=== PATIENT | male | born 1940 | race Caucasian/White ===

== ENCOUNTER → 2017-05-11 | Outpatient (CLI) | payer MEDICARE ==
[~2017-05-11] MED LIST: ACETAMINOPHEN-1 EAC1; ACETAMINOPHEN-1 EAC1 PO; AMITRIPTYLINE H25 M2 PO; AMLODIPINE-BEN1 EAC3 PO; BENAZEPRIL HCL20 MG PO; EFFIENT10 MG PO; HYTRIN 5 M5 MG/1 CA1 PO; IBUPROFEN 800800 M1 PO; IMDUR 60 MG TAB60 M1 PO; LISINOPRIL10 MG PO; LOPRESSOR25 PO; LOW DOSE ASPIRI81 M1 PO; METHOCARBAMOL500 M1; NEXIUM40 MG PO; NITROGLYCERIN0.4 MG; NITROGLYCERIN0.4 MG SUBLING; NORCO 5-325 TA1 EACH PO; NORVASC 5 MG TAB5 MG PO; PERCOCET PO; PLAVIX 75 MG TA75 M1 PO; PRILOSEC 20 MG20 MG PO; ZANTAC 150MG T150 M1; ZANTAC 150MG T150 M1 PO; ZANTAC 7575 MG PO; ZOCOR 20 MG TAB20 M1 PO
== END ==
LOC: M.RAD 08:50
DX: M25.512 Pain in left shoulder (principal); I10 Essential (primary) hypertension; I25.10 Atherosclerotic heart disease of native coronary artery without angina pectoris

== ENCOUNTER → 2017-10-25 | Outpatient (CLI) | payer MEDICARE ==
--- NOTE | 2017-10-25 17:22 | CARDNUC ---
[place] [address] CARDIAC NUCLEAR IMAGING REPORT Name: EPI OLEARY Room: [facility]#: [id number] Admission: 10/25/17 Attend Phys: Erick Fair Discharge: Date of : 42 Date of Service: 10/25/17 1722 Report #: [id number] THIS REPORT FOR: //name// APPROVED REPORT Imaging Protocol: Rest Tc-99m/Stress Tc-99m 1 day Study performed: 10/25/2017 07:45:00 Indication: CAD Patient Location: Out-Patient Stress Tech: Keyanna Chapman Stress Nurse: Sharon Oneill RN NM Tech:ONESIMO Ayala Ht: 5 ft 9 in Wt: 209 lbs BSA: 2.10 m2 BMI: 30.86 Medical History Medical History: Carotid artery disease Medications: Metoprolol, Amlodipine, Plavix, ASA, Statin Allergies: Gabapentin Cardiac Risk Factors: HTN, Hyperlipidemia, Age, FHX of CAD Previous Cardiac Procedures: Myocardial infarction, PCI Exercise History: Physically active Meds Held (24 hrs): Metoprolol, Amlodipine,Plavix, ASA, Statin Resting Data Rest SPECT myocardial perfusion imaging was performed in supine position 30 minutes following the intravenous injection of 11.2 mCi of Tc-99m Sestamibi. Time of rest injection: 0800 Date: 10/25/2017 Time of rest imagin The images were gated to evaluate regional wall motion and calculate left ventricular ejection fraction. Administration Route: IV Administration Site: Right Hand Exercise Stress At peak stress, the patient was injected intravenously with 33.8mCi of Tc-99m Sestamibi. Time of stress injection: 0940 Time of stress imagin Administration Route: IV Administration Site: [place] [address] CARDIAC NUCLEAR IMAGING REPORT Name: EPI OLEARY [id number] Admission: 10/25/17 Attend Phys: Erick Fair Discharge: Date of : 42 Date of Service: 10/25/17 1722 Report #: [id number] Gated Stress SPECT was performed 30 minutes after stress injection. The images were gated to evaluate regional wall motion and calculate left ventricular ejection fraction. Prone imaging was performed. Stress Test Details Stress Test: Exercise stress testing was performed using a Ravi protocol. Reason for pharmacologic stress test: HX CAD. HR Max Heart Rate (APMHR): 144 bpm Resting HR: 74 bpm Target HR (85% APMHR): 122 bpm Max HR Achieved: 145 bpm % of APMHR: 100 Recovery HR: 103 bpm HR response to stress: Normal HR response to stress BP Resting BP: 162/85 mmHg Recovery BP: 146/87 mmHg BP response to stress: Normal blood pressure response to stress. ECG Resting ECG: Sinus Rhythm, normal EKG Stress ECG: Sinus Tachycardia ST Change: None Arrhythmia: None Recovery ECG: Sinus Rhythm, normal EKG Recovery ST Change: None Recovery Arrhythmia: None Clinical Reason for Termination: Completed protocol Stress Symptoms: Fatigue Exercise duration: 6 min sec Exercise capacity: 7.05 METs Overall Exercise Capacity for Age: Normal Scale: Active The patient tolerated standard Ravi protocol exercise without significant symptoms. Nurse Comments Pt tolerated test well. [place] [address] CARDIAC NUCLEAR IMAGING REPORT Name: EPI OLEARY Room: [facility]#: [id number] Admission: 10/25/17 Attend Phys: Erick Fair Discharge: Date of : 42 Date of Service: 10/25/17 1722 Report #: [id number] Stress ECG Conclusion The baseline 12-lead electrocardiogram shows sinus rhythm without significant ST or T wave abnormality. EKGs obtained during and post exercise stress show sinus rhythm and sinus tachycardia with no significant ST or T wave changes when compared to baseline. There were no significant stress-induced arrhythmias. Study Quality Study: Good Artifact: No artifact Study Data At rest, the left ventricular ejection fraction was 76%.. Post stress, the left ventricular ejection was 73%.. TID = 0.85. Perfusion Normal left ventricular perfusion. Wall Motion Normal left ventricular wall motion. Nuclear Conclusion ECG Findings: negative for ischemia Clinical Findings: negative for ischemia Nuclear Findings: negative for ischemia Exercise Capacity: normal Left Ventricular Function: normal Risk Study: low Myocardial perfusion images show no defect to suggest infarct or ischemia. Left ventricular systolic function appears normal on gated studies. This is a low risk study. <Conclusion> The baseline 12-lead electrocardiogram shows sinus rhythm without significant ST or T wave abnormality. EKGs obtained during and post exercise stress show sinus rhythm and sinus tachycardia with no significant ST or T wave changes when compared to baseline. There were no significant stress-induced arrhythmias. <ELECTRONICALLY SIGNED> By: Nabil Hernández MD, FACC 10/25/171721 21 21 Nabil Hernández MD, FACC /INF
== END ==
LOC: M.NUC 05-03 13:40
DX: I25.10 Atherosclerotic heart disease of native coronary artery without angina pectoris (principal); I10 Essential (primary) hypertension; Z95.5 Presence of coronary angioplasty implant and graft

== ENCOUNTER → 2018-11-15 | Outpatient (CLI) | payer MEDICARE ==
--- NOTE | 2018-11-15 12:35 | 2DMMODE ---
[place] [address] 2 D/M-MODE ECHOCARDIOGRAM Name: EPI OLEARY Room: [facility]#: [id number] Admission: 11/15/18 Attend Phys: Erick Fair Discharge: Date of : 42 Date of Service: 11/15/18 1235 Report #: [id number] THIS REPORT FOR: //name// APPROVED REPORT Study performed: 11/15/2018 08:47:47 EXAM: Comprehensive 2D, Doppler, and color-flow Echocardiogram Patient Location: Out-Patient BSA: 2.06 HR: 55 bpm BP: 142/70 mmHg Other Information Study Quality: Good Indications CAD Hypertension/HDD 2D Dimensions IVSd: 10.40 (7-11mm) LVOT Diam: 20.43 (18-24mm) LVDd: 48.71 mm PWd: 10.40 (7-11mm) Ascending Ao: 30.91 (22-36mm) LVDs: 35.70 (25-40mm) Aortic Root: 27.43 mm Volumes Left Atrial Volume (Systole) LA ESV Index: 17.00 mL/m2 Aortic Valve AoV Peak Magdiel.: 0.82 m/s AO Peak Gr.: 2.68 mmHg LVOT Max P.25 mmHg AO Mean Gr.: 1.55 mmHg LVOT Mean P.47 mmHg LVOT Max V: 0.90 m/s AO V2 VTI: 19.80 cm LVOT Mean V: 0.55 m/s TAY (VTI): 3.28 cm2 LVOT V1 VTI: 19.82 cm Mitral Valve E/A Ratio: 0.65 MV Decel. Time: 362.59 ms MV E Max Magdiel.: 0.50 m/s MV PHT: 105.15 [place] [address] 2 D/M-MODE ECHOCARDIOGRAM Name: EPI OLEARY Room: [facility]#: [id number] Admission: 11/15/18 Attend Phys: Erick Fair Discharge: Date of : 42 Date of Service: 11/15/18 1235 Report #: [id number] MVA (PHT): 2.09 cm2 TDI E/Lateral E': 5.56 E/Medial E': 6.25 Medial E' Magdiel.: 0.08 m/s Lateral E' Magdiel.: 0.09 m/s Pulmonary Valve PV Peak Magdiel.: 0.90 m/s PV Peak Gr.: 3.21 mmHg Left Ventricle The left ventricle is normal size. There is normal LV segmental wall motion. There is normal left ventricular wall thickness. Left ventricular systolic function is normal. The left ventricular ejection fraction is within the normal range. LVEF is 55-60%. Grade I - abnormal relaxation pattern. Right Ventricle The right ventricle is normal size. The right ventricular systolic function is normal. Atria The left atrium size is normal. The right atrium size is normal. Aortic Valve The Aortic valve is sclerotic. No aortic regurgitation is present. There is no aortic valvular stenosis. Mitral Valve The mitral valve is normal in structure. Mild mitral regurgitation. No evidence of mitral valve stenosis. Tricuspid Valve The tricuspid valve is normal in structure. There is no tricuspid valve regurgitation noted. Pulmonic Valve Pulmonic valve is not well visualized. There is no pulmonic valvular regurgitation. Great Vessels The aortic root is normal in size. IVC is normal in size and collapses >50% with inspiration[place] [address] 2 D/M-MODE ECHOCARDIOGRAM Name: EPI OLEARY Room: [facility]#: [id number] Admission: 11/15/18 Attend Phys: Erick Fair Discharge: Date of : 42 Date of Service: 11/15/18 1235 Report #: [id number] There is no pericardial effusion. <Conclusion> LVEF is 55-60%. The Aortic valve is sclerotic. <ELECTRONICALLY SIGNED> By: Anselmo Brown MD, FAC 11/15/18 1235 1235 1235 Anselmo Brown MD, [facility] /INF
== END ==
LOC: M.CRD 08:45
DX: I08.0 Rheumatic disorders of both mitral and aortic valves (principal); I25.10 Atherosclerotic heart disease of native coronary artery without angina pectoris; I10 Essential (primary) hypertension

== ENCOUNTER → 2019-05-23 | Outpatient (CLI) | payer MEDICARE ==
--- NOTE | 2019-05-24 16:25 | CARDNUC ---
[place] [address] CARDIAC NUCLEAR IMAGING REPORT Name: EPI OLEARY Room: [facility]#: [id number] Admission: 05/23/19 Attend Phys: Erick Fair Discharge: Date of : 42 Date of Service: 05/24/19 1624 Report #: [id number] THIS REPORT FOR: cc: Dale Lopez MD, Dean L. MD Liston, Michael J. MD [facility] ~ APPROVED REPORT Study performed: 05/23/2019 09:24:26 Indication: , CAD s/p PCI Patient Location: Out-Patient Stress Tech: Hilda Ross Stress Nurse: Moira Sosa RN Ht: 5 ft 10 in Wt: 189 lbs BSA: 2.04 m2 BMI: 27.11 Medical History Medical History: CAD s/p stent Medications: amlodipine, asa-81, plavix, metoprolol, ntg, simvastatin Allergies: gabapentin Cardiac Risk Factors: agem hyperlipidemia, hypertension, diabetes, family hx Previous Cardiac Procedures: PCI Exercise History: Physically active Meds Held (24 hrs): metoprolol Resting Data Rest SPECT myocardial perfusion imaging was performed in supine position 30 minutes following the intravenous injection of 11.0 mCi of Tc-99m Sestamibi. Time of rest injection: 07:50 The images were gated to evaluate regional wall motion and calculate left ventricular ejection fraction. Administration Route: IV Administration Site: Right Hand Exercise Stress At peak stress, the patient was injected intravenously with 32.6mCi of Tc-99m Sestamibi. Time of stress injection: 09:25 Administration Route: [place] [address] CARDIAC NUCLEAR IMAGING REPORT Name: EPI OLEARY Room: [facility]#: [id number] Admission: 05/23/19 Attend Phys: Erick Fair Discharge: Date of : 42 Date of Service: 05/24/19 1624 Report #: [id number] Administration Site: Right Hand Heart Rate at time of stress injection: 143 bpm. Gated Stress SPECT was performed 30 minutes after stress injection. The images were gated to evaluate regional wall motion and calculate left ventricular ejection fraction. Prone imaging was performed. Stress Test Details Stress Test: Exercise stress testing was performed using a Ravi protocol. HR Max Heart Rate (APMHR): 142 bpm Resting HR: 76 bpm Target HR (85% APMHR): 120 bpm Max HR Achieved: 143 bpm % of APMHR: 100 Recovery HR: 104 bpm BP Resting BP: 145/71 mmHg Max BP: 210/75 mmHg Recovery BP: 185/74 mmHg ECG Resting ECG: Sinus Rhythm Stress ECG: Sinus Tachycardia ST Change: None Arrhythmia: None Recovery ECG: Sinus Rhythm Recovery ST Change: None Recovery Arrhythmia: VPC's Clinical Reason for Termination: Leg pain/Claudication Exercise duration: 6 min 00 sec Exercise capacity: 7.05 METs Functional Aerobic Impairment 100% The patient tolerated stated was probable exercise without significant cardiac symptoms. Stress ECG Conclusion The baseline 12-lead EKG shows sinus rhythm without significant ST segment or T wave abnormality. EKGs obtained during and post exercise showed sinus rhythm and sinus tachycardia with no significant ST segment or T-wave changes when compared to baseline. There were no [place] [address] CARDIAC NUCLEAR IMAGING REPORT Name: EPI OLEARY Room: [facility]#: [id number] Admission: 05/23/19 Attend Phys: Erick Fair Discharge: Date of : 42 Date of Service: 05/24/19 1624 Report #: [id number] Study Quality Study: Good Artifact: No artifact Study Data At rest, the left ventricular ejection fraction was 75%.. Post stress, the left ventricular ejection was 74%.. TID = 0.94. Perfusion Perfusion images obtained at rest and post exercise showed uniform uptake of the radioisotope throughout the myocardium without defect. Wall Motion Normal left ventricular wall motion. Nuclear Conclusion ECG Findings: negative for ischemia Clinical Findings: negative for ischemia Nuclear Findings: negative for ischemia Exercise Capacity: normal Left Ventricular Function: normal Risk Study: low Myocardial perfusion images show no defect to suggest infarct or ischemia. Left ventricular systolic function appears normal on gated studies. This is a low risk study. <Conclusion> The baseline 12-lead EKG shows sinus rhythm without significant ST segment or T wave abnormality. EKGs obtained during and post exercise showed sinus rhythm and sinus tachycardia with no significant ST segment or T-wave changes when compared to baseline. There were no stress-induced arrhythmias. <ELECTRONICALLY SIGNED> By: Nabil Hernández MD, FACC 05/24/19 1624 1624 1624 Nabil Hernández MD, FACC /INF
== END ==
LOC: M.NUC 11-24 09:00
DX: I25.10 Atherosclerotic heart disease of native coronary artery without angina pectoris (principal); E11.9 Type 2 diabetes mellitus without complications; Z95.9 Presence of cardiac and vascular implant and graft, unspecified

== ENCOUNTER → 2020-11-20 | Outpatient (CLI) | payer MEDICARE ==
--- NOTE | 2020-11-20 15:58 | CARDNUC ---
[place] [address] CARDIAC NUCLEAR IMAGING REPORT Name: EPI OLEARY Room: [facility]#: [id number] Admission: 11/20/20 Attend Phys: Erick Fair Discharge: Date of : 42 Date of Service: 11/20/20 1558 Report #: [id number] THIS REPORT FOR: cc: Dale Lopez MD, Dean L. MD Liston, Michael J. MD [facility] ~ APPROVED REPORT Study performed: 11/20/2020 08:58:31 Exam: Nuclear Stress Test Indication: CAD s/p PCI Patient Location: Out-Patient Stress Nurse: JORGE Owusu Tech:ONESIMO Ayala Ht: 5 ft 9 in Wt: 190 lbs BSA: 2.02 m2 HR: 94 bpm BP: 163/87 mmHg BMI: 28.05 Rhythm: NSR Medical History Medical History: CAD s/p stent Medications: Aspirin, Metoprolol, Nitroglycerin, Amlodipine, Plavix, Simvastatin, Sildenafil Allergies: Gabapentin Cardiac Risk Factors: FHX of CAD, Age, HTN, Hyperlipidemia, DM Previous Cardiac Procedures: PCI Stress Test Details Stress Test: Pharmacologic stress testing performed using 0.4 mg of regadenoson per 5 mL given IV over 10 seconds. HR Resting HR: 94 bpm Max Heart Rate (APMHR): 141 bpm Max HR Achieved: 108 bpm Target HR (85% APMHR): 119 bpm % of APMHR: 76 Recovery HR: 107 bpm HR response to stress: Normal HR response to stress BP Resting BP: 163/87 mmHg Max BP: 157/[place] [address] CARDIAC NUCLEAR IMAGING REPORT Name: EPI OLEARY Room: [facility]#: [id number] Admission: 11/20/20 Attend Phys: Erick Fair Discharge: Date of : 42 Date of Service: 11/20/20 1558 Report #: [id number] BP response to stress: No significant change in BP ECG Resting ECG: Sinus Rhythm Stress ECG: Sinus Tachycardia ST Change: None Arrhythmia: None Recovery ECG: Sinus Rhythm Recovery ST Change: None Recovery Arrhythmia: None Clinical Reason for Termination: Completed protocol Stress Symptoms: None The patient tolerated Lexiscan infusion without significant cardiac symptoms. Stress ECG Conclusion The baseline twelve-lead EKG shows sinus rhythm without significant ST segment abnormality. EKGs obtained during and post Lexiscan infusion show sinus rhythm and sinus tachycardia with no significant ST segment or T wave changes when compared to baseline. There were no stress-induced arrhythmias. NM EXAM: Myocardial Perfusion REST/STRESS Imaging Protocol: Rest Tc-99m/Stress Tc-99m 1 day Resting Data Rest SPECT myocardial perfusion imaging was performed in supine position 30 minutes following the intravenous injection of 11.6 mCi of Tc-99m Sestamibi. Time of rest injection: 07:40 The images were gated to evaluate regional wall motion and calculate left ventricular ejection fraction. Administration Route: IV Administration Site: Right Hand Pharmacologic Stress Pharmacologic stress test was performed by injecting Regadenoson 0.4 mg IV push followed by the intravenous injection of 35.7 mCi of Tc-99m Sestamibi. Time of stress injection: 09:00 Administration Route: IV Administration Site: Right Hand Heart Rate at time of stress injection: [address] [place] [address] CARDIAC NUCLEAR IMAGING REPORT Name: EPI OLEARY Room: [facility]#: [id number] Admission: 11/20/20 Attend Phys: Erick Fair Discharge: Date of : 42 Date of Service: 11/20/20 1558 Report #: [id number] Gated Stress SPECT was performed 40 minutes after stress injection. The images were gated to evaluate regional wall motion and calculate left ventricular ejection fraction. Prone imaging was performed. Study Quality Study: Good Artifact: No artifact Study Data At rest, the left ventricular ejection fraction was 69%.. Post stress, the left ventricular ejection was 72%.. TID = 0.97. Perfusion Perfusion images obtained at rest and post Lexiscan stress show uniform uptake of the radioisotope throughout the myocardium. There were no defects to suggest infarct or ischemia. Wall Motion Normal left ventricular wall motion. Nuclear Conclusion ECG Findings: negative for ischemia Clinical Findings: negative for ischemia Nuclear Findings: negative for ischemia Exercise Capacity: not assessed Left Ventricular Function: normal Risk Study: low Perfusion images show no defect to suggest infarct or ischemia. Left ventricular systolic function is normal on gated studies. This is a low risk study. <Conclusion> The baseline twelve-lead EKG shows sinus rhythm without significant ST segment abnormality. EKGs obtained during and post Lexiscan infusion show sinus rhythm and sinus tachycardia with no significant ST segment or T wave changes when compared to baseline. There were no stress-induced arrhythmias. <ELECTRONICALLY SIGNED> By: Nabil Hernández MD, FACC 11/20/20 1558 1558 1558 Nabil Hernández MD, FACC /INF
== END ==
LOC: M.NUC 06-05 12:37
PROVIDERS: ATTEND Internal Medicine
DX: I25.10 Atherosclerotic heart disease of native coronary artery without angina pectoris (principal); E11.9 Type 2 diabetes mellitus without complications; Z95.5 Presence of coronary angioplasty implant and graft